=== PATIENT | female | born 1995 | race Two or more races ===

== ENCOUNTER 2021-03-09 12:54 | Emergency (ER) | payer BC ==
[~2021-03-09] VITALS: Ht 149.9 cm; Wt 53.5 kg
--- NOTE | 2021-03-09 13:10 | NUR ---
TO ER BED 6, C/O UPPER BACK PAIN, PAINFUL TAKING DEEP BREATHS S/P SNEEZING 10PM LAST NIGHT. AAOX3, BREATHING EVEN AND NON LABORED
--- NOTE | 2021-03-09 13:39 | NUR ---
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
[2021-03-09] MEDS ORDERED: KETOROLAC TROMETHAMINE 15 MG/ML VIAL ONE (13:42)
[2021-03-09] MEDS ORDERED: CYCLOBENZAPRINE 10 MG TABLET ONE (13:42)
[2021-03-09] MEDS ORDERED: KETOROLAC TROMETHAMINE INJ 30 MG/ML VIAL IM ONE (14:00)
[2021-03-09] MEDS ORDERED: CYCLOBENZAPRINE 10 MG TABLET PO ONE (14:00)
[2021-03-09] MEDS ORDERED: IBUP-1955 PO (14:21)
[2021-03-09] MEDS ORDERED: CYCL5TAB PO (14:21)
--- NOTE | 2021-03-09 14:21 | NUR ---
Patient discharged to home in stable condition. Written and verbal after care instructions given. Patient verbalizes understanding of instruction.
[2021-03-09 14:30] VITALS: BP 121/76
== END 2021-03-09 14:31 | disposition home or self-care (01) ==
LOC: ER 13:00
DX: M54.6 Pain in thoracic spine (principal); M62.830 Muscle spasm of back; R00.0 Tachycardia, unspecified; Z88.0 Allergy status to penicillin
CPT/HCPCS: 71045; 96372; 99283; J1885